=== PATIENT | female | born 1995 | race Caucasian/White ===

== ENCOUNTER 2019-04-30 13:26 | Emergency (ER) | payer OTHER ==
--- NOTE | 2019-04-30 15:08 | ER Document Report ---
ED Medical Screen (RME) - General Stated Complaint: VAGINAL BLEEDING Time Seen by Provider: 04/30/19 14:51 - HPI Notes: 04/30/19 15:08 23-year-old female to the emergency department with complaints of vaginal bleeding since April 13. She has a IUD says she does not usually have very heavy periods. However she has been filling upwards of 6 pads a day. She is starting to feel dizzy and lightheaded. She denies any chest pain or shortness of breath. She denies any fevers or chills. She states that she cannot be because of the IUD. Denies any history of dysfunctional uterine bleeding. I performed a medical screening exam on the patient determined she will need further evaluation and management by main side provider. I have gone ahead and ordered initial orders to help expedite her care. Patient agrees with the plan. - Related Data Allergies/Adverse Reactions: No Known Allergies Allergy (Unverified 04/30/19 14:44) Physical Exam - Vital signs Vitals: Temp Pulse Resp BP Pulse Ox 98.4 F 65 20 129/60 H 100 04/30/19 14:19 04/30/19 14:19 04/30/19 14:19 04/30/19 14:19 04/30/19 14:19 Course - Vital Signs Vital signs: Temp Pulse Resp BP Pulse Ox 98.4 F 65 20 129/60 H 100 04/30/19 14:19 04/30/19 14:19 04/30/19 14:19 04/30/19 14:19 04/30/19 14:19
[2019-04-30 16:24] LABS: ABSOLUTE EOSINOPHILS # (AUTO) 0.1 10^3/uL (0.0-0.6); ABSOLUTE LYMPHOCYTES (AUTO) 2.4 10^3/uL (0.5-4.7); ABSOLUTE MONOCYTES (AUTO) 0.4 10^3/uL (0.1-1.4); ABSOLUTE NEUT (AUTO) 3.1 10^3/uL (1.7-8.2); BASOPHILS % (AUTO) 0.5 % (0-2); EOSINOPHILS % (AUTO) 1.3 % (0-6); HEMATOCRIT 42.7 % (36.0-47.0); HEMOGLOBIN 14.4 g/dL (12.0-15.5); LYMPHOCYTES % (AUTO) 39.8 % (13-45); MEAN CORPUSCULAR HEMOGLOBIN 31.2 pg (27.0-33.4); MEAN CORPUSCULAR HGB CONC 33.7 g/dL (32.0-36.0); MEAN CORPUSCULAR VOLUME 92 fl (80-97); PLATELET COUNT 266 10^3/uL (150-450); RED BLOOD COUNT 4.62 10^6/uL (3.72-5.28); RED CELL DISTRIBUTION WIDTH 13.4 % (11.5-14.0); SEGMENTED NEUTROPHILS % (AUTO) 52.4 % (42-78); TOTAL CELLS COUNTED % (AUTO) 100 %
[2019-04-30 16:41] LABS: APPEARANCE,URINE CLEAR; BILIRUBIN,URINE NEGATIVE (NEGATIVE); COLOR,URINE STRAW; GLUCOSE, URINE NEGATIVE (NEGATIVE); KETONES,URINE NEGATIVE (NEGATIVE); LEUKOCYTE ESTERASE,URINE NEGATIVE (NEGATIVE); NITRITE,URINE NEGATIVE (NEGATIVE); PROTEIN,URINE NEGATIVE (NEGATIVE); URINE SPECIFIC GRAVITY 1.002; UROBILINOGEN,URINE NEGATIVE mg/dL (<2.0)
[2019-04-30 16:44] LABS: ALBUMIN 4.4 g/dL (3.5-5.0); ALKALINE PHOSPHATASE 68 U/L (38-126); ANION GAP 10 (5-19); ASPARTATE AMINO TRANSFERASE 27 U/L (14-36); BILIRUBIN,DIRECT 0.2 mg/dL (0.0-0.4); BILIRUBIN,TOTAL 0.3 mg/dL (0.2-1.3); BLOOD UREA NITROGEN 10 mg/dL (7-20); CALCIUM 9.8 mg/dL (8.4-10.2); CARBON DIOXIDE 27 mmol/L (22-30); CHLORIDE 103 mmol/L (98-107); GLUCOSE 84 mg/dL (75-110); POTASSIUM 4.3 mmol/L (3.6-5.0)
--- NOTE | 2019-04-30 17:22 | RADIOLOGY REPORT (SQ) ---
EXAM DESCRIPTION: U/S NON OB PEL TV W/DOPPLER COMPLETED DATE/TIME: 04/30/2019 4:45 pm REASON FOR STUDY: vag bleeding COMPARISON: None. TECHNIQUE: Dynamic and static grayscale images acquired of the pelvis via transvaginal approach and recorded on PACS. Additional selected color Doppler and spectral images recorded. LIMITATIONS: None. FINDINGS: UTERUS: Retroverted. Contour normal. No mass. ENDOMETRIAL STRIPE: No focal or generalized thickening. No masses. Contraceptive device located with in the lower uterine segment and upper cervix. CERVIX: No nabothian cysts. RIGHT OVARY AND DOPPLER: Normal size. No worrisome masses. Normal arterial vascular flow without evid ence for torsion. LEFT OVARY AND DOPPLER: Normal size. No worrisome masses. Normal arterial vascular flow without evide nce for torsion. FREE FLUID: None noted. OTHER: No other significant finding. MEASUREMENTS: UTERUS: 7.4 x 3.9 x 5 cm ENDOMETRIAL STRIPE: 3.2 mm RIGHT OVARY: 2.2 x 3.3 x 2.4 cm LEFT OVARY: 3.4 x 1.5 x 2.3 cm IMPRESSION: Malpositioned contraceptive device, low lying within the lower uterine segment and upper cervix. TECHNICAL DOCUMENTATION: JOB ID: [id number] [employer]- All Rights Reserved Rev-08/20 Reading location - IP/workstation name: [email or web address]
--- NOTE | 2019-04-30 20:00 | ER Document Report ---
HPI - HPI Time Seen by Provider: 04/30/19 14:51 Onset: Other Onset/Duration: Persistent Pain Level: Denies Context: 23-year-old female presents emergency department with complaints of vaginal bleeding since April 13. She reports she has been having a heavy menses. Patient also reports she feels very tired. Denies fever vomiting diarrhea. Patient just moved here from [place] on April 12. Reports she recently had a child quit breast-feeding in December. She reports that is when her menses started back again. Patient denies abdominal pain. No complaints of pain with void. Associated Symptoms: None Exacerbated by: Denies Relieved by: Denies Similar symptoms previously: No Recently seen / treated by doctor: No - CONSTITUTIONAL Constitutional: DENIES: Fever, Chills - NEURO Neurology: REPORTS: Dizzinesss / Vertigo Past Medical History - General Information source: Patient Last Menstrual Period: 04/13/2019 - Social History Smoking Status: Never Smoker Frequency of alcohol use: None Drug Abuse: None Lives with: Family Family History: None Patient has suicidal ideation: No Patient has homicidal ideation: No Psychiatric Medical History: Reports: Hx Depression Surgical Hx: Negative Vertical Provider Document - CONSTITUTIONAL Agree With Documented VS: Yes Exam Limitations: No Limitations General Appearance: WD/WN, No Apparent Distress - HEENT HEENT: Atraumatic, Normocephalic - NECK Neck: Normal Inspection, Supple. negative: Lymphadenopathy-Left, Lymphadenopathy-Right - RESPIRATORY Respiratory: Breath Sounds Normal, No Respiratory Distress - CARDIOVASCULAR Cardiovascular: Regular Rate, Regular Rhythm - GI/ABDOMEN Gastrointestinal: Abdomen Soft, Abdomen Non-Tender - BACK Back: Normal Inspection. negative: CVA Tenderness-Right, CVA Tenderness-Left - MUSCULOSKELETAL/EXTREMETIES Musculoskeletal/Extremeties: NIDIA SARKAR - NEURO Level of Consciousness: Awake, Alert, Appropriate Motor/Sensory: No Motor Deficit - DERM Integumentary: Warm, Dry Course - Re-evaluation Re-evalutation: 04/30/19 20:10 Labs unremarkable. Ultrasound shows a malpositioned IUD. Patient was instructed on this. Patient reports that she recently had the IUD checked in [place] when she was living there in February. Patient does not have a primary care provider nor and [facility]. Dr. Alcatnara was consulted. Patient may foll ow-up in the office. Patient reports she has a follow-up with her primary care provider to get a referral to [facility]. She was instructed to use a backup control. Patient was offered control pill but reports her is deployed so she does not need anything. Patient reports she does have a list of primary care providers that provided to her and she will follow-up with somebody tomorrow. She was instructed on the importance of monitoring his symptoms push fluids consider vitamins with iron. She was also instructed return here for worsening symptoms worsening bleeding any concerns. She verbalized understanding to all instructions Transvaginal US 04/30/19 14:55 IMPRESSION: Malpositioned contraceptive device, low lying within the lower u terine segment and upper cervix. Laboratory 04/30/19 04/30/19 04/30/19 15:44 15:44 15:44 WBC 6.0 RBC 4.62 Hgb 14.4 Hct 42.7 MCV 92 MCH 31.2 MCHC 33.7 RDW 13.4 Plt Count 266 Lymph % (Auto) 39.8 [place] % (Auto) 6.0 Eos % (Auto) 1.3 Baso % (Auto) 0.5 Absolute Neuts (auto) 3.1 Absolute Lymphs (auto) 2.4 Absolute Monos (auto) 0.4 Absolute Eos (auto) 0.1 Absolute Basos (auto) 0.0 Seg Neutrophils % 52.4 Sodium 139.8 Potassium 4.3 Chloride 103 Carbon Dioxide 27 Anion Gap 10 BUN 10 Creatinine 0.70 Est GFR ( Amer) > 60 Est GFR (MDRD) Non-Af > 60 Glucose 84 Calcium 9.8 Total Bilirubin 0.3 Direct Bilirubin 0.2 Neonat Total Bilirubin Not Reportable Neonat Direct Bilirubin Not Reportable Neonat Indirect Bili Not Reportable AST 27 ALT 19 Alkaline Phosphatase 68 Total Protein 8.0 Albumin 4.4 Serum HCG, Qual NEGATIVE Urine Color Urine Appearance Urine pH Ur Specific [place] Urine Protein Urine Glucose (UA) Urine Ketones Urine Blood Urine Nitrite Urine Bilirubin Urine Urobilinogen Ur Leukocyte Esterase Urine WBC (Auto) Urine RBC (Auto) Urine Bacteria (Auto) Squamous Epi Cells Auto Urine Mucus (Auto) Urine Ascorbic Acid Blood Type Antibody Screen 04/30/19 04/30/19 15:44 15:44 WBC RBC Hgb Hct MCV MCH MCHC RDW Plt Count Lymph % (Auto) [place] % (Auto) Eos % (Auto) Baso % (Auto) Absolute Neuts (auto) Absolute Lymphs (auto) Absolute Monos (auto) Absolute Eos (auto) Absolute Basos (auto) Seg Neutrophils % Sodium Potassium Chloride Carbon Dioxide Anion Gap BUN Creatinine Est GFR ( Amer) Est GFR (MDRD) Non-Af Glucose Calcium Total Bilirubin Direct Bilirubin Neonat Total Bilirubin Neonat Direct Bilirubin Neonat Indirect Bili AST ALT Alkaline Phosphatase Total Protein Albumin Serum HCG, Qual Urine Color STRAW Urine Appearance CLEAR Urine pH 7.0 Ur Specific [place] 1.002 Urine Protein NEGATIVE Urine Glucose (UA) NEGATIVE Urine Ketones NEGATIVE Urine Blood LARGE H Urine Nitrite NEGATIVE Urine Bilirubin NEGATIVE Urine Urobilinogen NEGATIVE Ur Leukocyte Esterase NEGATIVE Urine WBC (Auto) 2 Urine RBC (Auto) 12 Urine Bacteria (Auto) TRACE Squamous Epi Cells Auto 5 Urine Mucus (Auto) RARE Urine Ascorbic Acid NEGATIVE Blood Type O POSITIVE Antibody Screen NEGATIVE - Vital Signs Vital signs: Temp Pulse Resp BP Pulse Ox 98.1 F 58 L 20 135/75 H 100 04/30/19 17:04 04/30/19 17:10 04/30/19 17:04 04/30/19 17:10 04/30/19 17:04 - Laboratory Result Diagrams: 04/30/19 15:44 04/30/19 15:44 Laboratory results interpreted by me: 04/30/19 15:44 Urine Blood LARGE H - Diagnostic Test Radiology reviewed: Reports reviewed - Consults DR ALCANTARA Time consulted: 20:07 Reason for consultation: 04/30/19 20:06 malpositioned IUD Consulted provider: follow-up in office Discharge - Discharge Clinical Impression: Vaginal bleeding Malpositioned intrauterine device (IUD) Qualifiers: Encounter type: initial encounter Qualified Code(s): T83.32XA - Displacement of intrauterine contraceptive device, initial encounter Condition: Stable Disposition: HOME, SELF-CARE Additional Instructions: *You have been evaluated for vaginal bleeding, malpositioned IUD *Follow up with your primary care provider tomorrow for referral to [facility] within a week It is possible to become because your IUD is misplaced to use protection *Return to ED for worsening condition, changes, needs, worsening bleeding concerns Forms: Elevated Blood Pressure Referrals: [facility] [Provider Group] - Follow up as needed VERN VICENTE MD [EMERITUS] - Follow up as needed YUNIOR MONTOAY MD [EMERITUS] - Follow up as needed
[2019-04-30 20:15] VITALS: BP 103/65
== END 2019-04-30 20:15 | disposition home or self-care (01) ==
LOC: ER 13:26
DX: T83.32XA Displacement of intrauterine contraceptive device, initial encounter (principal); Y76.8 Miscellaneous obstetric and gynecological devices associated with adverse incidents, not elsewhere classified; N93.9 Abnormal uterine and vaginal bleeding, unspecified; R53.83 Other fatigue; R42 Dizziness and giddiness
CPT/HCPCS: 36415; 76830; 80053; 81001; 84703; 85025; 86850; 86900; 86901; 93976; 99284

== ENCOUNTER 2019-08-31 11:30 | Emergency (ER) | payer OTHER ==
--- NOTE | 2019-08-31 13:25 | RADIOLOGY REPORT (SQ) ---
EXAM DESCRIPTION: TIBIA FIBULA RIGHT IMAGES COMPLETED DATE/TIME: 08/31/2019 1:17 pm REASON FOR STUDY: Laceration lower leg with glass COMPARISON: None. NUMBER OF VIEWS: Two views. TECHNIQUE: Two radiographic images acquired of the right tibia and fibula to include the knee and an kle in at least one projection. LIMITATIONS: None. FINDINGS: MINERALIZATION: Normal. BONES: No acute fracture or dislocation. No worrisome bone lesions. SOFT TISSUES: No obvious swelling or foreign body. OTHER: No other significant finding. IMPRESSION: No osseous finding. No radiopaque foreign body. TECHNICAL DOCUMENTATION: JOB ID: [id number] 2010 [employer]- All Rights Reserved Reading location - IP/workstation name: [email or web address]
[2019-08-31 15:37] VITALS: BP 107/58
[2019-08-31] MEDS ORDERED: LIDOCAINE 1% INJ (10 MG/ML) 10 ML MDV ONE (16:53)
--- NOTE | 2019-08-31 18:05 | ER Document Report ---
ED Wound - General Chief Complaint: Laceration Stated Complaint: LEG LACERATION Time Seen by Provider: 08/31/19 12:41 Mode of Arrival: Ambulatory Information source: Patient Notes: Patient is a 23-year-old female comes emergency room complaining of laceration to her right posterior calf. Patient states that her broke a jude jar about 3 days ago and threw it in the plastic garbage bag as she was taking the garbage to the road and scraped up against her leg causing a laceration. Patient states that it bled extensively and was gaping so she came the emergency room to have it evaluated. Patient states that she got her last tetanus shot in 2019. TRAVEL OUTSIDE OF THE [place] IN LAST 30 DAYS: No - HPI Patient complains to provider of: Laceration Occurred: Just prior to arrival Onset/Duration: Sudden Quality of pain: Achy Severity: Mild Pain Level: 1 Context: Injury Skin Temperature: Warm Skin Color: Normal Capillary refill: < 3 seconds Sensations intact: Yes Distal pulses present: Yes Associated Symptoms: None - Related Data Allergies/Adverse Reactions: No Known Allergies Allergy (Unverified 04/30/19 14:44) Past Medical History - General Information source: Patient - Social History Smoking Status: Never Smoker Frequency of alcohol use: Social Drug Abuse: None Family History: None Patient has homicidal ideation: No Psychiatric Medical History: Reports: Hx Depression Review of Systems - Review of Systems Constitutional: No symptoms reported EENT: No symptoms reported Cardiovascular: No symptoms reported Respiratory: No symptoms reported Gastrointestinal: No symptoms reported Genitourinary: No symptoms reported Female Genitourinary: No symptoms reported Musculoskeletal: No symptoms reported Skin: Other - Laceration Hematologic/Lymphatic: No symptoms reported Neurological/Psychological: No symptoms reported Physical Exam - Vital signs Vitals: Temp Pulse Resp BP Pulse Ox 97.5 F 67 18 101/57 L 98 08/31/19 12:02 08/31/19 12:02 08/31/19 12:02 08/31/19 12:02 08/31/19 12:02 Interpretation: Normal - Notes Notes: PHYSICAL EXAMINATION: GENERAL: Well-appearing, well-nourished and in no acute distress. HEAD: Atraumatic, normocephalic. EYES: Pupils equal round and reactive to light, extraocular movements intact, conjunctiva are normal. LUNGS: Breath sounds clear to auscultation bilaterally and equal. No wheezes rales or rhonchi. HEART: Regular rate and rhythm without murmurs Musculoskeletal: Normal range of motion, no pitting or edema. No cyanosis. NEUROLOGICAL: Normal speech, normal gait. Normal sensory, motor exams PSYCH: Normal mood, normal affect. SKIN: Examination patient's her concern is her right calf area more posterior lateral. This is approximately mid right lower extremity. She has a 1 cm wide by 5 cm long elliptical laceration it is mostly into the fat tissue no muscle seen. There is no sign of tendon damage. Patient has full flexion-extension of the knee as well as rotation. She also has good ankle flexion extension and rotation as well. She has good cap refill in the nailbeds the toes of the right foot. She also has good dorsalis pedal pulses. As stated it is a 5 cm x 1 cm wide elliptical laceration that has smooth borders. Course - Re-evaluation Re-evalutation: 08/31/19 18:02 Patient laceration came together quite well. It took 9 total sutures with 2 of those being a vertical mattress and 4 of them being horizontal mattresses with the rest being simple interrupted. Patient had good approximation with good hemostasis achieved. He had good sensation around the entire portion of the wound after procedure. - Vital Signs Vital signs: Temp Pulse Resp BP Pulse Ox 98.2 F 68 18 107/58 L 100 08/31/19 15:37 08/31/19 15:37 08/31/19 15:37 08/31/19 15:37 08/31/19 15:37 Procedures - Laceration/Wound Repair Right Posterior Leg Time completed: 18:03 Wound length (cm): 5 - Wound was gaping by 1 cm in its midpoint. Wound's Depth, Shape: Superficial Laceration pre-procedure: Sterile drapes applied, Shur-Clens applied Anesthetic type: 1% Lidocaine Volume Anesthetic (mLs): 9 Wound explored: Clean Irrigated w/ Saline (mLs): 500 Wound Debrided: Minimal Wound Repaired With: Sutures Suture Size/Type: 4:0, Prolene Number of Sutures: 9 Layer Closure?: No Post-procedure wound care: Sterile dressing applied, Splint applied Post-procedure NV exam normal: Yes Complications: No Discharge - Discharge Clinical Impression: Leg laceration Qualifiers: Encounter type: initial encounter Laterality: right Qualified Code(s): S81.811A - Laceration without foreign body, right lower leg, initial encounter Disposition: HOME, SELF-CARE Instructions: Antibiotic Ointment Protection ([facility]), Laceration Care ([facility]), Prophylactic Antibiotic ([facility]), Soap Cleansing ([facility]) Additional Instructions: LACERATION CARE: Your laceration has been sutured to keep the skin edges aligned during healing. The time of suture removal depends on the nature and location of your cut. Please follow the care instructions the doctor has outlined for you and return for further care, according to the schedule you've been given. Keep the wound and dressing clean. Unless you were told otherwise, you may shower daily, blotting the wound dry with a clean, unused towel. At other times, If the dressing gets wet or blood soaked, remove it and blot the wound dry, then reapply a new dressing. Unless you were instructed otherwise, dressings should be changed at least daily. If any signs of infection occur (swelling, redness, drainage, increasing tenderness, red streaks, tender lumps in the armpit or groin above the laceration, or fever), see the doctor immediately. SOAP CLEANSING: Gently wash the wound daily using a mild soap (like Ivory, Phisoderm, Neutrogena). Use warm water, rubbing gently until all debris, ooze, and crusting have been washed from the wound. Allow to dry briefly (about 10 m inutes) after cleaning. Repeat this cleansing at least three times a day for the first two days and then once or twice a day. ANTIBIOTIC OINTMENT PROTECTION: Your wounds are such that dressing them is not practical or optional. After cleansing, you should apply a thin coating of antibiotic ointment (Bacitracin, not Neosporin) to the wounds at least three times daily. This lessens infection risk, and may decrease the amount of scarring. Use a q-tip or dull butter knife, not your finger, to apply this ointment. Any debris or ooze which builds up in the ointment should be gently rubbed off with a sterile gauze pad. Harder crusting may need to be gently scrubbed off with a clean wash cloth with soap and warm water, perhaps applying a warm, wet wash cloth to the wound for ten minutes first. Development of redness, severe itching, or blistering may mean allergy to the ointment. See the doctor. PROPHYLACTIC ANTIBIOTIC: The antibiotics which have been prescribed are designed to decrease the risk of infection. Only certain types of wounds benefit from this -- the typical cut, scrape, or burn DOES NOT require antibiotics. Of course, infection can still occur despite the use of prophylactic antibiotics. Your wound will heal with less chance of an infectious complication if you take the medication as directed. The most important dose is the FIRST dose, so don't delay filling the prescription! FOLLOW-UP CARE: Please return in ____ days for an infection check and dressing change. Your sutures should be removed in __10-12__ days. To facilitate a timely removal of your sutures, you may return to the Emergency Department at [facility]. You do not need to call for an appointment, but the best time to come in for suture removal is early in the morning. If you have been referred to another physician for follow-up care, call that physicians office for an appointment as you were instructed. If you experience a significant change in your laceration, or if you are concerned there may be an infection (swelling, redness, drainage, increasing tenderness, red streaks, tender lumps in the armpit or groin above the laceration, or fever), return to the Emergency Department immediately re-evaluation. Change dressing to 3 times a day as needed or when wet. Also you may apply some Mederma as directed by the application bottle. This will help reduce the scarring. If you like for the first couple days you may also use some triple antibiotic or Neosporin. I am writing you for oral medication for infection as well for prophylactic treatment of the wound. Should you have any concerns that this wound is not healing appropriately return to ER for recheck. You should be able to return to work on 10-04-2019 would suggest using a Band-Aid and an Blayne wrap to keep the mobility down at that lower leg. Prescriptions: Cephalexin Monohydrate [Keflex 500 mg Capsule] 500 mg PO QID #28 capsule Forms: Elevated Blood Pressure, Return to Work
== END 2019-08-31 18:39 | disposition home or self-care (01) ==
LOC: ER 11:30
PROC: 0HQKXZZ Repair Right Lower Leg Skin, External Approach (ICD-10-PCS; principal; 2019-08-31)
DX: S81.811A Laceration without foreign body, right lower leg, initial encounter (principal); W25.XXXA Contact with sharp glass, initial encounter
CPT/HCPCS: 99283

== ENCOUNTER 2020-04-12 15:10 | Emergency (ER) | payer OTHER ==
--- NOTE | 2020-04-12 15:20 | ER Document Report ---
ED Medical Screen (RME) - General Chief Complaint: Vaginal Bleeding Stated Complaint: VAGINAL BLEEDING/DISCHARGE Time Seen by Provider: 04/12/20 15:16 Mode of Arrival: Ambulatory Information source: Patient Notes: 22-year-old female patient presented to the emergency department concern for heavy vaginal bleeding and passage of abnormal discharge. Patient reports she started using a NuvaRing approximately 1 month ago. She took it out a few days ago to have her. And started bleeding more heavy than usual. She is concerned because she passed a clear looking clot. Exam deferred until patient is in a room. Patient alert, oriented, no acute distress noted. I have greeted and performed a rapid initial assessment of this patient. A comprehensive ED assessment and evaluation of the patient, analysis of test results and completion of the medical decision making process will be conducted by additional ED providers. I have specifically instructed the patient or family members with the patient to immediately return to any nursing staff should anything change in the patient's condition or with their chief complaint. TRAVEL OUTSIDE OF THE [place] IN LAST 30 DAYS: No - Related Data Allergies/Adverse Reactions: No Known Allergies Allergy (Unverified 04/30/19 14:44) Past Medical History Psychiatric Medical History: Reports: Hx Depression Physical Exam - Vital signs Vitals: Temp Pulse Resp BP Pulse Ox 98.7 F 82 18 138/77 H 99 04/12/20 15:15 04/12/20 15:15 04/12/20 15:15 04/12/20 15:15 04/12/20 15:15 Course - Vital Signs Vital signs: Temp Pulse Resp BP Pulse Ox 98.7 F 82 18 138/77 H 99 04/12/20 15:15 04/12/20 15:15 04/12/20 15:15 04/12/20 15:15 04/12/20 15:15
[2020-04-12 16:08] LABS: ABSOLUTE MONOCYTES (AUTO) 0.4 10^3/uL (0.1-1.4); ABSOLUTE NEUT (AUTO) 3.9 10^3/uL (1.7-8.2); BASOPHILS % (AUTO) 0.4 % (0-2); EOSINOPHILS % (AUTO) 0.8 % (0-6); HEMATOCRIT 41.5 % (36.0-47.0); HEMOGLOBIN 14.4 g/dL (12.0-15.5); LYMPHOCYTES % (AUTO) 31.8 % (13-45); MEAN CORPUSCULAR HEMOGLOBIN 31.6 pg (27.0-33.4); MEAN CORPUSCULAR HGB CONC 34.6 g/dL (32.0-36.0); MEAN CORPUSCULAR VOLUME 91 fl (80-97); MONOCYTES % (AUTO) 6.4 % (3-13); PLATELET COUNT 272 10^3/uL (150-450); RED BLOOD COUNT 4.56 10^6/uL (3.72-5.28); RED CELL DISTRIBUTION WIDTH 12.8 % (11.5-14.0); SEGMENTED NEUTROPHILS % (AUTO) 60.6 % (42-78); TOTAL CELLS COUNTED % (AUTO) 100 %; WHITE BLOOD COUNT 6.4 10^3/uL (4.0-10.5)
[2020-04-12 16:27] LABS: APPEARANCE,URINE CLEAR; BILIRUBIN,URINE NEGATIVE (NEGATIVE); COLOR,URINE STRAW; GLUCOSE, URINE NEGATIVE (NEGATIVE); KETONES,URINE NEGATIVE (NEGATIVE); LEUKOCYTE ESTERASE,URINE NEGATIVE (NEGATIVE); NITRITE,URINE NEGATIVE (NEGATIVE); PROTEIN,URINE NEGATIVE (NEGATIVE); URINE SPECIFIC GRAVITY 1.004; UROBILINOGEN,URINE NEGATIVE mg/dL (<2.0)
--- NOTE | 2020-04-12 19:55 | ER Document Report ---
ED GI/ - General Chief Complaint: Vaginal Bleeding Stated Complaint: VAGINAL BLEEDING/DISCHARGE Time Seen by Provider: 04/12/20 15:16 Primary Care Provider: IVETH DHILLON PA-C [Primary Care Provider] - Follow up as needed Mode of Arrival: Ambulatory Notes: 22-year-old female patient presented to the emergency department concern for heavy vaginal bleeding and passage of abnormal discharge. Patient reports she started using a NuvaRing approximately 1 month ago. She took it out a few days ago to have her. And started bleeding more heavy than usual. She is concerned because she passed a clear looking clot. TRAVEL OUTSIDE OF THE [place] IN LAST 30 DAYS: No - Related Data Allergies/Adverse Reactions: No Known Allergies Allergy (Unverified 04/30/19 14:44) Past Medical History - General Information source: Patient - Social History Smoking Status: Never Smoker Frequency of alcohol use: None Family History: None - Past Medical History Cardiac Medical History: Denies: Hx Atrial Fibrillation, Hx Congestive Heart Failure, Hx Hypercholesterolemia, Hx Hypertension Neurological Medical History: Reports: Hx Migraine Endocrine Medical History: Denies: Hx Diabetes Mellitus Type 1, Hx Diabetes Mellitus Type 2 Musculoskeletal Medical History: Denies Hx Arthritis Psychiatric Medical History: Reports: Hx Bipolar Disorder, Hx Depression Denies: Hx Schizophrenia Past Surgical History: Denies: Hx Abdominal Surgery, Hx Appendectomy, Hx Bowel Surgery, Hx Breast Surgery, Hx Cardiac Catheterization, Hx Cardiac Surgery, Hx Section, Hx Cholecystectomy, Hx Genitourinary Surgery, Hx Gynecologic Surgery, Hx Hysterectomy, Hx Kidney (Renal Surgery), Hx Mastectomy, Hx Neurologic Surgery, Hx Nose Surgery, Hx Open Heart Surgery, Hx Oral Surgery, Hx Orthopedic Surgery, Hx Pancreatic Surgery, Hx Pituitary Surgery, Hx Rectal Surgery, Hx Thyroid Surgery, Hx Tonsillectomy, Hx Tubal Ligation, Hx Urinary Tract Surgery, Hx Vascular Surgery Review of Systems - Review of Systems Female Genitourinary: Vaginal discharge, Vaginal bleeding -: Yes All other systems reviewed and negative Physical Exam - Vital signs Vitals: Temp Pulse Resp BP Pulse Ox 98.7 F 82 18 138/77 H 99 04/12/20 15:15 04/12/20 15:15 04/12/20 15:15 04/12/20 15:15 04/12/20 15:15 - Notes Notes: PHYSICAL EXAMINATION: GENERAL: Well-appearing, well-nourished and in no acute distress. HEAD: Atraumatic, normocephalic. EYES: Pupils equal round and reactive to light, extraocular movements intact, conjunctiva are normal. ENT: Nares patent, oropharynx clear without exudates. Moist mucous membranes. NECK: Normal range of motion, supple without lymphadenopathy LUNGS: Breath sounds clear to auscultation bilaterally and equal. No wheezes rales or rhonchi. HEART: Regular rate and rhythm without murmurs ABDOMEN: Soft, nontender, nondistended abdomen. No guarding, no rebound. No masses appreciated. Female : Normal external genitalia, cervix friable, tender, no adnexal tenderness. Thin white discharge from the cervix. Musculoskeletal: Normal range of motion, no pitting or edema. No cyanosis. NEUROLOGICAL: Cranial nerves grossly intact. Normal speech, normal gait. Normal sensory, motor exams PSYCH: Normal mood, normal affect. SKIN: Warm, Dry, normal turgor, no rashes or lesions noted. Course - Vital Signs Vital signs: Temp Pulse Resp BP Pulse Ox 98.5 F 72 14 138/76 H 100 04/12/20 20:04 04/12/20 20:04 04/12/20 20:04 04/12/20 20:04 04/12/20 20:04 - Laboratory Results Result Diagrams: 04/12/20 15:52 Laboratory Results Interpreted: 04/12/20 15:52 Urine Blood MODERATE H Critical Laboratory Results Reviewed: No Critical Results - Radiology Results Critical Radiology Results Reviewed: No Critical Results Discharge - Discharge Clinical Impression: Pelvic inflammatory disease Condition: Stable Disposition: HOME, SELF-CARE Additional Instructions: Pelvic Inflammatory Disease You have been diagnosed as having pelvic inflammatory disease (PID). This is an infection of the fallopian tubes and surrounding areas of the pelvis. Symptoms are usually pelvic pain and discharge. The infection can do permanent damage to the tubes and ovaries. It should be taken very seriously. Treatment is antibiotics, which may be given by vein or by injection if the infection seems serious. It's important that you receive all recommended medication. Condoms help prevent spread of this infection to others. Call the doctor or return at once if you develop increasing fever, rash, severe pelvic pain, vaginal bleeding (other than your period), or problems with your bladder or bowels. Prescriptions: Metronidazole [Flagyl 500 mg Tablet] 500 mg PO Q12H #28 tablet Doxycycline Hyclate [Vibramycin 100 mg Tablet] 100 mg PO BID #28 tablet Referrals: IVETH DHILLON PA-C [Primary Care Provider] - Follow up as needed
[2020-04-12 20:05] VITALS: BP 138/76
[2020-04-12 20:17] LABS: RBCS (WET MOUNT) RARE RBCS SEEN; T.VAGINALIS (WET MOUNT) NO TRICHOMONAS SEEN; WBCS (WET MOUNT) FEW WBCS SEEN; YEAST (WET MOUNT) NO YEAST SEEN
[2020-04-12 21:48] LABS: CHLAM PCR NOT DETECTED (NOT DETECT)
== END 2020-04-12 20:05 | disposition home or self-care (01) ==
LOC: ER 15:10
DX: N73.9 Female pelvic inflammatory disease, unspecified (principal); N93.9 Abnormal uterine and vaginal bleeding, unspecified; Z97.5 Presence of (intrauterine) contraceptive device
CPT/HCPCS: 36415; 81001; 84703; 85025; 87210; 87491; 87591; 99283